=== PATIENT | female | born 1990 | race Caucasian/White ===

== ENCOUNTER 2022-10-07 09:20 | Day surgery (SDC) | payer OTHER ==
[2022-10-07] MEDS ORDERED: SEVOFLURANE 250 ML LIQUID INH ONE (09:30)
[2022-10-07] MEDS ORDERED: fentaNYL 100 MCG/2 ML VIAL ONE (09:31)
[2022-10-07] MEDS ORDERED: MIDAZOLAM 2 MG/2 ML VIAL ONE (09:31)
[2022-10-07] MEDS ORDERED: PROPOFOL 200 MG/20 ML VIAL IVP ONE (09:31)
[2022-10-07] MEDS ORDERED: ACETAMINOPHEN 500 MG TABLET PO ONE (09:41)
[2022-10-07] MEDS ORDERED: CEFAZOLIN 2G/50ML 0.9% NS 2 GM/50 ML BAG IV ONE (09:41)
[2022-10-07 09:43] LABS: HCG UR QUAL NEGATIVE
--- NOTE | 2022-10-07 10:00 | ANESTHESIA ---
Pre-Anesthesia VS, & Labs - Diagnosis L leg mass - Procedure excision L leg mass Vital Signs: Temp Pulse Resp BP Pulse Ox O2 Flow Rate 36.1 C L 59 L 16 117/81 H 100 0 10/07/22 09:43 10/07/22 09:43 10/07/22 09:43 10/07/22 09:43 10/07/22 09:43 10/07/22 09:43 Height: 5 ft 7 in Weight (kg): 73.8 kg Body Mass Index: 25.4 BMI Classification: Overweight - NPO >8 hours - Is Patient ?: No - Lab Results Lab results reviewed: Yes Home Medications and Allergies Home Medications: Ambulatory Orders Multivitamin 1 each PO DAILY 10/03/22 Multivitamin 1 each PO DAILY 10/03/22 Allergies/Adverse Reactions: Allergies Allergy/AdvReac Type Severity Reaction Status Date / Time No Known Drug Allergies Allergy Verified 10/03/22 16:51 Anes History & Medical History - Anesthetic History Anesthesia Complications: reports: No previous complications Family history of Anesthesia Complications: Denies Family history of Malignant Hyperthermia: Denies - Medical History Cardiovascular: reports: None Pulmonary: reports: None Exam General: Alert, Oriented x3, Cooperative Dental: WNL Mouth Openin Fingerbreadth Neck Mobility: Normal Mallampati classification: II Thyromental Distance: 4-6 cm Respiratory: Lungs clear, Normal breath sounds, No respiratory distress Cardiovascular: Regular rate Neurological: Normal speech Mental/Cognitive Status: Alert/Oriented X3, Normal for patient Cognitive Status: Within normal limits Plan Anesthesia Type: General Consent for Procedure(s) Verified and Reviewed: Yes Code Status: Attempt Resuscitation ASA classification: 2-Mild systemic disease Is this case an emergency?: No
[2022-10-07] MEDS ORDERED: LIDOCAINE MPF 2%-EPI 1:200000 20 ML VIAL ONE (10:02)
[2022-10-07] MEDS ORDERED: BUPIVACAINE 0.5% PF 30 ML VIAL ONE (10:02)
[2022-10-07] MEDS ORDERED: ePHEDrine 50 MG/ML VIAL IVP PRN (10:24)
[2022-10-07] MEDS ORDERED: MORPHINE 2 MG/ML CARPUJECT IVP PRN (10:24)
[2022-10-07] MEDS ORDERED: ONDANSETRON 4 MG/2 ML VIAL IVP PRN (10:24)
[2022-10-07] MEDS ORDERED: NALOXONE 0.4 MG/ML VIAL IVP PRN (10:24)
[2022-10-07] MEDS ORDERED: ATROPINE ABBOJECT 1 MG/10 ML SYRINGE IVP PRN (10:24)
[2022-10-07] MEDS ORDERED: HYDROmorphone 0.5 MG/0.5 ML SYRINGE IVP PRN (10:24)
[2022-10-07] MEDS ORDERED: METOCLOPRAMIDE 10 MG/2 ML VIAL IVP PRN (10:24)
[2022-10-07] MEDS ORDERED: fentaNYL 100 MCG/2 ML VIAL IVP PRN (10:24)
[2022-10-07] MEDS ORDERED: BUPIVACAINE 0.25% PF 30 ML VIAL ONE (10:35)
[2022-10-07] MEDS ORDERED: DEXAMETHASONE 4 MG/ML VIAL ONE (10:56)
[2022-10-07] MEDS ORDERED: ONDANSETRON 4 MG/2 ML VIAL ONE (10:56)
[2022-10-07] MEDS ORDERED: PHENYLEPHRINE 10 MG/ML VIAL ONE (10:58)
[2022-10-07] MEDS ORDERED: LACTATED RINGERS 1,000 ML IV SCH (11:00)
[2022-10-07] MEDS ORDERED: BUPIVACAINE 0.5% PF 30 ML VIAL INFIL ONE (11:15)
[2022-10-07] MEDS ORDERED: LIDOCAINE 2%-EPI 1:100000 20 ML MDV SUBQ ONE (11:16)
[2022-10-07] MEDS ORDERED: LACTATED RINGERS 400 ML IV ONE (11:25)
--- NOTE | 2022-10-07 11:38 | OPERATIVE REPORT ---
Operative Report - General Procedure Date: 10/07/22 Planned Procedure: excision left leg mass Pre-Op Diagnosis: left leg mass Procedure Performed: excision left leg mass Post Op Diagnosis: left leg mass, suspect lipoma - Procedure Note Primary Surgeon: Dr. Sarah Phillips Anesthesia Provider: Mike Diaz CRNA Anesthesia Technique: General LMA, Local Estimated Blood Loss (mL): 5 Indications: Patient has a mass on her left lower extremity which has been present for over a year. She frequently bumps the area which causes her pain. It has increased in size since she first noticed it. She has never had any overlying skin changes. The patient was seen and evaluated in the clinic. Imaging suggests a lipoma. Due to the depth of the mass I recommended the procedure to be done in the operating room. We discussed the risks, benefits, and alternatives including bleeding, infection, damage to surrounding structures, numbness in the area, and recurrence of the mass. The patient voiced understanding, her questions were answered, and she wished to proceed. A consent was signed prior to surgery. Findings: 1.4 x 3 x 0.5 cm mass excised and sent to pathology, favor lipoma Complications: None - Other Other Information/Narrative: The patient was taken to the operating room and placed in the supine position. Preop antibiotics were given. ERAS medications were given. The patient was prepped and draped in the usual sterile fashion. A preop surgical timeout was performed. An incision was planned following the natural skin folds overlying the mass. The skin and subcutaneous tissues were injected with local anesthetic. The incision was made with a 15 blade scalpel and carried down through the skin and subcutaneous tissue to the level of the mass. The mass was identified and grasped with an Allis clamp. It was then freed from the surrounding tissues. Once the mass was free, it was removed and sent to pathology for permanent sections. It appeared to be consistent with a lipoma. Excellent hemostasis was confirmed in the mass cavity. Then the deep dermal tissues were reapproximated with 2-0 Vicryl. Finally, the skin edges were reapproximated with 3-0 Monocryl in a running subcuticular fashion. A sterile dressing of skin glue was placed. The patient tolerated the procedure well there were no complications. She was transferred to recovery in stable condition.
[2022-10-07 12:14] VITALS: BP 99/59
--- NOTE | 2022-10-07 17:15 | ANESTHESIA POST OP EVALUATION ---
Anesthesia Post Eval - Post Anesthesia Eval Vitals: Last Vital Signs Temp 36.4 C L 10/07/22 11:47 Pulse 79 10/07/22 12:13 Resp 14 10/07/22 12:13 BP 99/59 L 10/07/22 12:13 Pulse Ox 100 10/07/22 12:13 O2 Flow Rate 0 10/07/22 09:43 CV Function Including HR & BP: Stable Pain Control: Satisfactory Nausea & Vomiting: Negative Mental Status: Baseline Respiratory Status: Airway Patent Hydration Status: Satisfactory Anesthesia Complications: None
== END 2022-10-07 09:21 | disposition home or self-care (01) ==
LOC: SDS 09:20
PROVIDERS: ATTEND Surgery
PROC: 0JBP0ZZ Excision of Left Lower Leg Subcutaneous Tissue and Fascia, Open Approach (ICD-10-PCS; principal; 2022-10-07 10:30)
DX: D17.24 Benign lipomatous neoplasm of skin and subcutaneous tissue of left leg (principal)
CPT/HCPCS: 27632; 81025; A9270; J0690; J3490; J7120

== ENCOUNTER 2023-08-14 07:47 | Outpatient (CLI) | payer OTHER ==
[2023-08-14 07:59] LABS: BASOPHILS % (AUTO) 0.4 %; EOSINOPHILS # (AUTO) 0.3 10^3/uL (0.0-0.7); EOSINOPHILS % (AUTO) 2.7 %; HCT - HEMATOCRIT 38.3 % (37.0-47.0); HGB - HEMOGLOBIN 12.7 g/dL (12.0-16.0); LYMPHOCYTES % (AUTO) 21.1 %; MEAN CORPUSCULAR HEMOGLOBIN 29.7 pg (27.0-31.0); MEAN CORPUSCULAR HGB CONC 33.2 g/dL (32.0-36.0); MEAN CORPUSCULAR VOLUME 89.5 fL (81.0-99.0); MEAN PLATELET VOLUME 9.8 fL (7.9-10.8); MONOCYTES # (AUTO) 0.6 10^3/uL (0.0-1.0); NEUTROPHILS # (AUTO) 6.5 10^3/uL (1.5-6.6); NEUTROPHILS % (AUTO) 69.4 %; PLT - PLATELET COUNT 284 10^3/uL (130-450); RED BLOOD COUNT 4.28 10^6/uL (4.20-5.40); RED CELL DISTRIBUTION WIDTH 12.6 % (12.0-15.0); WHITE BLOOD COUNT 9.4 x10^3/uL (4.8-10.8)
[2023-08-15 03:11] LABS: HBsAG SCREEN Negative (Negative)
[2023-08-15 04:09] LABS: HCV AB Non Reactive (Non Reactive); HIV SCREEN 4TH GENERATION Non Reactive (Non Reactive)
[2023-08-15 08:11] LABS: RPR Non Reactive (Non Reactive); VARICELLA-ZOSTER AB IGG 1217 index (Immune >165)
== END 2023-08-14 07:48 | disposition home or self-care (01) ==
LOC: LAB 07:47
PROVIDERS: ATTEND Nurse Practitioner Obstetrics & Gynecology
DX: Z36.89 Encounter for other specified antenatal screening (principal)
CPT/HCPCS: 36415; 85025; 86592; 86762; 86787; 86803; 86850; 86900; 86901; 87340; 87389

== ENCOUNTER 2023-11-03 16:41 | Outpatient (CLI) | payer OTHER ==
--- NOTE | 2023-11-03 18:13 | Ultrasound Report ---
PROCEDURE: OB Anatomy Scan INDICATIONS: SUPERVISION OF OUTSIDE/PRIOR DATING DATA: Last menstrual period (LMP): 06/14/2023. LMP-based estimated date of delivery (MILLICENT): 03/20/2024. First dating scan (date and location): Unknown. Estimated date of delivery (MILLICENT) from first dating scan: 03/20/2024. The below data below was generated using the clinical MILLICENT of 03/20/2024. TECHNIQUE: Real-time scanning was performed of the fetus, with image documentation and biometric measurements. Endovaginal scanning: Not performed. COMPARISON: None. FINDINGS: General: A single living intrauterine gestation is present. Presentation: Variable Placenta: Placental position is anterior, without previa. Amniotic fluid index: 5.7 cm, within normal limits for gestational age. Largest pocket 2.5 cm. heart rate: No cardiac motion. Maternal cervical canal: 2.8 cm long; normal length is 2.5 cm or more. Closed biometrics: Biparietal diameter: 3.2 cm, 16 weeks 1 day Head circumference: 13.2 cm, 16 weeks 5 days Abdominal circumference: 11.7 cm, 17 weeks 3 days Femur length: 2.5 cm, 17 weeks 4 days Estimated gestational age from initial scan: 20 weeks 2 days Composite gestational age from present scan: 17 weeks 0 days Estimated weight and percentile: 193 g, less than 1st percentile. Measurement variability in biometric dating: +/- 10 days from 12-20 weeks gestation, +/- 2 weeks from 20-30 weeks gestation, +/- 3 weeks at 30 weeks gestation or later. No motion. No gross anatomic abnormality. Maternal ovaries are unremarkable. IMPRESSION: 1. Arreaga intrauterine at 17 weeks 0 days based on today's ultrasound. No cardiac motion . Discordant weight/dating. Cervix is closed. Ultrasound findings diagnostic of failu re. 2. Placenta and amniotic fluid are within normal limits. Preliminary findings conveyed to Ramandeep at 5:15 PM. Reviewed by: Sean Clinton MD on 11/03/2023 6:11 PM PDT Approved by: Sean Clinton MD on 11/03/2023 6:11 PM PDT Station ID: [id number]
== END 2023-11-03 16:42 | disposition home or self-care (01) ==
LOC: DI 16:41
PROVIDERS: ATTEND Nurse Practitioner Obstetrics & Gynecology
DX: Z34.02 Encounter for supervision of normal first pregnancy, second trimester (principal); Z36.89 Encounter for other specified antenatal screening

== ENCOUNTER 2023-11-04 08:32 | Inpatient (IN) | payer OTHER ==
[2023-11-04] MEDS ORDERED: fentaNYL 100 MCG/2 ML VIAL IVP PRN (09:43)
[2023-11-04] MEDS ORDERED: lidocaine 1% 20 ML MDV ID PRN (09:43)
[2023-11-04] MEDS ORDERED: CARBOPROST TROMETHAMINE 250 MCG/ML VIAL IM PRN (09:43)
[2023-11-04] MEDS ORDERED: ONDANSETRON 4 MG/2 ML VIAL IVP PRN (09:43)
[2023-11-04] MEDS ORDERED: TRANEXAMIC ACID IN NACL 1,000 MG/100 ML BAG IV PRN (09:43)
[2023-11-04] MEDS ORDERED: METHYLERGONOVINE 0.2 MG/ML VIAL IM PRN (09:43)
[2023-11-04] MEDS ORDERED: LORazepam 2 MG/ML VIAL IVP PRN (09:47)
[2023-11-04] MEDS ORDERED: MORPHINE 10 MG/ML VIAL IVP PRN (09:49)
--- NOTE | 2023-11-04 09:54 | HISTORY & PHYSICAL EXAMINATION ---
Admit History - Visit Reason Visit Reason: Other - : 4 Parity: 2 Premature: 0 Ectopic: 0 : 2 Care: positive: [facility] Risk/History: positive: None Complications This : positive: Other Smoking Status: Never smoker - Mother's Labs Mother's Blood Type: positive: O Mother's RH: positive: Positive Rubella Status: positive: Immune Meds/Allgy - Home Medications Home Medications: Ambulatory Orders Medication Instructions Recorded Confirmed Multivitamin 1 each PO DAILY 10/03/22 10/07/22 oxyCODONE [Roxicodone] 5 mg PO Q4H PRN #5 tablet 10/07/22 - Allergies Allergies/Adverse Reactions: Allergies Allergy/AdvReac Type Severity Reaction Status Date / Time No Known Drug Allergies Allergy Verified 10/03/22 16:51 Review of Systems - Constitutional Constitutional: denies: Fatigue, Fever, Chills, Malaise - Eyes Eyes: denies: Blurred vision, Spots in vision, Dipolpia - Cardiovascular Cariovascular: denies: Irregular heart rate, Palpitations, Edema - Respiratory Respiratory: denies: Cough - Gastrointestinal Gastrointestinal: denies: Constipation, Diarrhea, Nausea, Vomiting - Genitourinary Genitourinary: denies: Dysuria, Frequency - Integumentary Integumentary: denies: Rash, Pruritis - Neurological Neurological: denies: Headache - Psychiatric Psychiatric: reports: Anxiety. denies: Depression - Hematologic/Lymphatic Hematologic/Lymphatic: denies: Anemia - All Other Systems All Other Systems: reports: Reviewed and negative Plan for Labor - Plan For Labor I expect patient to be DC'd or transferred within 96 hours.: Yes Plan for Labor: HPI: Nancy is a 33yo @ 20.3wks today by LMP c/w 7.6wk U/S who presents to [facility] today with intrauterine demise. She presented yesterday, 11/03/2023 for her routine anatomic survey and there was no cardiac motion detected. We discussed these findings at length yesterday and she elected to go home and attempt to sleep and return this morning for induction of labor. She is with her Luis Enrique this morning. She is understandably tearful. They both ask appropriate questions and are ready to move forward with the process of induction at this time. We reviewed associated risks and side effects and potential for D&C as well as need for blood transfusion which patient consents to. Nancy is a patient of [facility] and has been a patient for the duration of her which has been uncomplicated thus far. Dating criteria: LMP 06/14/2023 --> MILLICENT by LMP 03/20/2024 Initial U/S @ 7.6wks c/w LMP dating OB Hx: G1: 10/11/2015 @ 39.5wks. 2xc64mr male. Unmedicated delivery. Intact. G2: 07/03/2018 SAB G3: 09/23/2019 @ 37.5wks. 8lb1oz female. Unmediated delivery. Intact. Medical Hx: no significant Surgical Hx: wisdom teeth removal -2008; Closed fracture reduction right arm 03/2001; Left calf lipoma removal 07/2022 Social Hx: Monogamous with male partner Pepe. Stopped drinking alcohol due to . Denies current use of tobacco, marijuana or other recreational drugs. Reports that she is safe in current relationship. Family Hx: Denies family history of congenital anomalies, Cystic Fibrosis or chromosomal abnormalities. Colon cancer Allergies: NKDA Meds: PNV course: O positive, antibody negative Hep B neg, Hep C neg HIV nonreactive, RPR nonreactive Rubella immune, varicella immune Genetic screening declined COVID vaccine - declined Influenza vaccine - declined FAS: 11/03/2023 Placenta anterior, without previa. Amniotic fluid index 5.7. heart rate: No cardiac motion. Maternal cervical canal is 2.8cm long. Estimated weight is 193g (less than 1st %tile) and 17.0wks gestation composite gestation age. Disconcordant weight/dating. Ultrasound findings consistent with findings of failure. Assessment: 33yo @ 20.3wks gestation by LMP cw 7.6 U/S Intrauterine demise with growth consistent with 17.0wks Plan: [facility] Initiate 200mcg BC misoprostol q 4 hrs for induction of labor Ibuprofen and tylenol for pain management per pt request. Morphine or fentanyl PRN pain per pt request. Ativan for anxiety PRN. metal drill press operator physician consulted and agrees with above plan of care. Will continue to update regarding patient status.
[2023-11-04] MEDS ORDERED: LACTATED RINGERS 1,000 ML IV SCH (10:00)
--- NOTE | 2023-11-04 11:13 | PHARMACY PROGRESS NOTE ---
- Best Possible Medication History Admit Date and Time: 11/04/23 0943 Processed by: Pharmacy Medications reviewed in ED?: No Medication History completed: Yes Patient Interview: Pt unable to participate Secondary Source(s): Insurance records As the person ultimately responsible for medication therapy, providers are able to order a medication from an existing home medication list in [facility] via the "Reconcile Routine" prior to Confirmation of that medication by product support sales representative. Such practice is discouraged except when the physician, in their clinical judgment, deems that a medical need exists for a medication without regard to previous use.
[2023-11-04 11:14] LABS: BASOPHILS % (AUTO) 0.5 %; EOSINOPHILS # (AUTO) 0.3 10^3/uL (0.0-0.7); EOSINOPHILS % (AUTO) 3.4 %; HCT - HEMATOCRIT 37.8 % (37.0-47.0); HGB - HEMOGLOBIN 12.4 g/dL (12.0-16.0); LYMPHOCYTES # (AUTO) 2.2 10^3/uL (1.5-3.5); LYMPHOCYTES % (AUTO) 27.1 %; MEAN CORPUSCULAR HEMOGLOBIN 29.7 pg (27.0-31.0); MEAN CORPUSCULAR HGB CONC 32.8 g/dL (32.0-36.0); MEAN CORPUSCULAR VOLUME 90.4 fL (81.0-99.0); MEAN PLATELET VOLUME 10.1 fL (7.9-10.8); MONOCYTES # (AUTO) 0.5 10^3/uL (0.0-1.0); NEUTROPHILS % (AUTO) 62.3 %; PLT - PLATELET COUNT 263 10^3/uL (130-450); RED BLOOD COUNT 4.18 10^6/uL (4.20-5.40); RED CELL DISTRIBUTION WIDTH 12.4 % (12.0-15.0); WHITE BLOOD COUNT 8.1 x10^3/uL (4.8-10.8)
[2023-11-04] MEDS: miSOPROStoL 200 MCG TABLET PO SCH (11:35)
--- NOTE | 2023-11-04 12:47 | CONSULTATION NOTE ---
Consultation Report: Called for assist with placement of PIV. Multiple failed attempts. US used to place 20 ga at R FA attempt x1. Lab draws complete at this time, vialsx4, cap and Jloop, secured and dressed. Pt tolerated without complication or complaint.
--- NOTE | 2023-11-04 21:33 | CONSULTATION NOTE ---
Referring Provider Name of Referring Provider:: Ramandeep Blanco CNM Consult Date: 11/04/23 Chief Complaint - Chief Complaint Chief Complaint: demise at 20 weeks History of Present Illness - Admitted From Admitted From:: home - History Obtained From Records Reviewed: yes History obtained from: Ramandeep Blanco - History of Present Illness HPI Comment/Other: patient went for routine anatomy scan and found to have demise. 17 week size. patient and her are of course very upset by this. came in today for labor induction with misoprostol to delivery their baby. I talked with them this morning and with Ramandeep Blanco CNM about her plan. her history in chart was also reviewed. History - Past Medical History Cardiovascular: reports: None Respiratory: reports: None HEENT: reports: Chronic vision loss MRSA Hx?: No Meds/Allgy - Home Medications Home Medications: Ambulatory Orders Medication Instructions Recorded Confirmed Vit No.180/Iron/Folic 1 tab PO DAILY 11/04/23 11/04/23 [ Plus Vitamin-Mineral] - Allergies Allergies/Adverse Reactions: Allergies Allergy/AdvReac Type Severity Reaction Status Date / Time No Known Drug Allergies Allergy Verified 10/03/22 16:51 Exam - Vital Signs Reviewed Vital Signs: Yes Vital Signs: Vital Signs x48h Temp Pulse Resp BP Pulse Ox 11/04/23 19:30 98.1 F 80 18 111/72 98 11/04/23 17:00 98.4 F 80 16 107/69 11/04/23 15:00 98.2 F 72 17 106/72 Conclusion and Plan - Lab Results Laboratory Results 11/04/23 10:55: Blood Type O POSITIVE, Antibody Screen NEGATIVE 11/04/23 10:55: WBC 8.1, RBC 4.18 L, Hgb 12.4, Hct 37.8, MCV 90.4, MCH 29.7, MCHC 32.8, RDW 12.4, Plt Count 263, MPV 10.1, Neut # (Auto) 5.0, Lymph # (Auto) 2.2, [place] # (Auto) 0.5, Eos # (Auto) 0.3, Baso # (Auto) 0.0, Absolute Nucleated RBC 0.00, Nucleated RBC % 0.0 - Diagnostic Imaging Results Diagnostic Imaging Results: positive: Final report reviewed - Diagnosis Diagnosis: demise at 17 weeks - Consultation Note Consultation Note: patient is here for labor induction with misoprostol. will be managed by Ramandeep Blanco CNM but I am aware of plan and agree with management and will be present to assist with care as needed in this difficult case.
[2023-11-05] MEDS: SODIUM CHLORIDE FLUSH 0.9% 10 ML SYRINGE IVP SCH (00:17)
[2023-11-05] MEDS: SODIUM CHLORIDE FLUSH 0.9% 10 ML SYRINGE IVP PRN (04:15)
--- NOTE | 2023-11-05 12:32 | PROVIDER PROGRESS NOTE ---
Subjective - Subjective Subjective: S: Patient is coping well at this time. She is intermittently tearful but is processing her grief well and is able to verbalize her feelings and is asking appropriate questions. Her remains supportive at the bedside. She is understandably feeling anxious regarding a timeline and has requested a change in plan if possible to encourage things to move forward. We have reviewed each time the normalcy of this process taking an indeterminate amount of time for each patient and she reports understanding. She reports feeling mild, occasional cramping but nothing consistent or overly uncomfortable. She had a small amount of brown discharge when she went to the bathroom approximately 4 hours ago but has not had any since that time. O: Heart RRR w/o M/G/R, lungs CTAB, abdomen soft and nontender. SVE fingertip/2cm in length/-2 medium consistency, posterior. A:Assessment: 33yo @ 20.4wks gestation by LMP cw 7.6 U/S Intrauterine demise with growth consistent with 17.0wks S/p 5 doses of 50mcg BC misoprostol Plan: Initiate 400mcg BC misoprostol q 4 hrs for induction of labor Ibuprofen and tylenol for pain management per pt request. Morphine or fentanyl PRN pain per pt request. Ativan for anxiety PRN. order caller physician consulted and agrees with above plan of care. Will continue to update regarding patient status. Objective - Vital Signs/Intake & Output Intake & Output: Intake & Output 11/02/23 11/03/23 11/04/23 11/05/23 23:59 23:59 23:59 23:59 Intake Total 400 Balance 400 - Lab Results Fish Bones: 11/04/23 10:55 Other Labs: Lab Results x24hrs 11/04/23 Range/Units 10:55 Blood Type O POSITIVE Antibody Screen NEGATIVE
[2023-11-05] MEDS: miSOPROStoL 200 MCG TABLET PO SCH (12:48)
[2023-11-05] MEDS: ACETAMINOPHEN 500 MG TABLET PO PRN (18:37)
[2023-11-05] MEDS: IBUPROFEN 800 MG TABLET PO PRN (18:38)
--- NOTE | 2023-11-05 19:24 | PROVIDER PROGRESS NOTE ---
Subjective - Subjective Subjective: S: Pt experiencing more discomfort with contractions. She is feeling very emotional at present time understandably. She requests IV pain medication. Her is supportive at the bedside. O: SROM 1855 moderate of clear fluid in the bathroom and then is back to the bed. A: 33yo @ 20.2wks gestation by LMP c/w 6wk U/S Intrauterine demise with growth consistent with 17wk gestation P: Continue 400mcg BC misoprostol q 4hrs. Fentanyl PRN pain Tylenol and ibuprofen PRN pain. Ativan PRN anxiety. production control analyst physician notified of pt progress. Objective - Vital Signs/Intake & Output Vital Signs: Vital Signs x48h Temp Pulse Resp BP Pulse Ox 11/05/23 17:24 37.0 C 64 18 124/76 99 11/05/23 15:00 116 C H 70 18 116/78 11/05/23 13:00 36.8 C 70 16 108/72 Intake & Output: Intake & Output 11/02/23 11/03/23 11/04/23 11/05/23 23:59 23:59 23:59 23:59 Intake Total 400 Balance 400 - Lab Results Fish Bones: 11/04/23 10:55
[2023-11-05] MEDS ORDERED: fentaNYL 100 MCG/2 ML VIAL ONE (19:26)
[2023-11-05] MEDS: fentaNYL 100 MCG/2 ML VIAL IVP PRN (19:30)
[2023-11-05] MEDS ORDERED: OXYTOCIN 10 UNIT/ML VIAL ONE (19:55)
[2023-11-05] MEDS ORDERED: WITCH HAZEL/GLYCERIN 1 PAD TOP PRN (20:00)
[2023-11-05] MEDS: OXYTOCIN 10 UNIT/ML VIAL IM ONE (20:00)
--- NOTE | 2023-11-05 21:29 | PROVIDER PROGRESS NOTE ---
Subjective - Subjective Subjective: 33yo @ 20.1wks gestation with intrauterine demise with growth consistent with 17.0wk gestation. She was diagnosed with IUFD on 11/03/2023 and presented to [facility] for induction of labor on 11/04/2023. She received 5 total doses of 200mcg BC misoprostol q 4 hours followed by 2 doses of 400mcg BC misoprostol. SROM occurred at 1855 and was noted to be a moderate amount of clear fluid. She then proceeded to spontaneously deliver a stillborn male at 1947 on 11/05/2023 over intact perineum with simultaneous delivery of placenta and amniotic sac. Upon delivery the amniotic sac was carefully removed and there was noted to be a tight double nuchal cord. The cord insertion site at abdomen also appeared abnormal with tight coiling and thinning at the lower (approximate) 5cm. 10mg IM pitocin administered for active management of the third stage. Uterine fundus firm and there is no excessive bleeding. Perineum intact. The umbilical cord was ceremoniously cut by FOB per family request. The placenta and attached cord segment were sent to pathology per protocol. Pt and given time to hold and ca with fetus per their request. Appropriate emotional grief displayed and both parents coping appropriately at this time. Patient was left in stable condition. Will evaluate for discharge home in the morning. Objective - Vital Signs/Intake & Output Vital Signs: Vital Signs x48h Temp Pulse Resp BP Pulse Ox 11/05/23 17:24 37.0 C 64 18 124/76 99 11/05/23 15:00 116 C H 70 18 116/78 Intake & Output: Intake & Output 11/02/23 11/03/23 11/04/23 11/05/23 23:59 23:59 23:59 23:59 Intake Total 400 Balance 400 - Lab Results Fish Bones: 11/04/23 10:55
[2023-11-06 06:33] VITALS: O2SAT 98
--- NOTE | 2023-11-06 11:12 | Discharge Plan ---
Discharge Plan Problem Reviewed?: Yes Disposition: Home, Self Care Condition: Good Diet: Regular Activity Restrictions: Activity as Tolerated Shower Restrictions: No Driving Restrictions: No Weight Bearing: Full Weight No Smoking: If you smoke, Please STOP! Call for help. Follow-up with: Ramandeep Blanco CNM, ARNP [Provider Admit Priv/Credential] - 1 Week
--- NOTE | 2023-11-06 11:37 | DISCHARGE SUMMARY ---
Discharge Summary Condition at Discharge: Good Discharge Disposition: 01 Home, Self Care - HPI History of Present Illness: Date of Admission: 11/04/2023 Date of Discharge: 11/06/2023 Diagnosis on Admission: 1. 33yo @ 20.2wks gestation by LMP c/w 7.6 U/S 2. Intrauterine demise with growth consistent with 17.0wks 3. O positive Diagnosis on Discharge: 1. 33yo s/p stillborn vaginal delivery 2. Perineum intact 3. Normal recovery Brief History: She is a patient of [facility] who presented on 11/04/2023 for induction of labor secondary to diagnosis of intrauterine demise. She received 5 doses of 200mcg BC misoprostol and 400mcg BC misoprostol. SROM occurred at 1855 and she progressed to spontaneously deliver a stillborn male infant over intact perineum on 11/05/2023 at 1947. Amniotic sac and placenta were delivery simultaneously with fetus. Perineum was noted to be intact. She received IM pitocin after delivery for active management of the third stage. EBL 50mL. Tight double nuchal cord and abnormal cord insertion site noted. Findings relayed to parents at the time of delivery. She is ambulating and tolerating a regular diet. She is urinating without difficulty and her lochia is scant. Her pain is well controlled without the use of oral medications. She will be discharged home today with instructions to taking ibuprofen and tylenol over the counter as needed for pain management. She intends to follow up with myself in 5 days for care or sooner if needed. She has been given precautions to call if she has any worsening fevers, chills, abdominal pain, increased vaginal bleeding or foul smelling vaginal loc hia. Physical exam: Normocephalic, atraumatic. Heart RRR w/o M/G/R, lungs CTAB, abdomen soft and notender, fundus firm and U-3, perineum intact, scant lochia, bilateral LE's no edema. Mood is stable and appropriate. - ALLERGIES Allergies/Adverse Reactions: Allergies Allergy/AdvReac Type Severity Reaction Status Date / Time No Known Drug Allergies Allergy Verified 10/03/22 16:51 - MEDICATIONS Home Medications: Ambulatory Orders Medication Instructions Recorded Confirmed Vit No.180/Iron/Folic 1 tab PO DAILY 11/04/23 11/04/23 [ Plus Vitamin-Mineral] - LABS Result Diagrams: 11/04/23 10:55
[2023-11-06 12:14] VITALS: BP 108/73
--- NOTE | 2023-11-07 07:47 | Labor Flowsheet ---
Labor Flowsheet Datetime Report Generated by CPN: 11/07/2023 07:47 Datetime: 11/04/2023 15:36 PATIENT CARE I/O Interventions: Up to BR Datetime: 11/04/2023 13:26 Patient Care Comments: Up to BR Datetime: 11/04/2023 11:35 MEDICATIONS Cervical Ripening Agents: Cytotec @ 200 Medication Comments: PO COMMUNICATION Communication: RN at Bedside
== END 2023-11-06 11:30 | disposition home or self-care (01) | DRG 807 ==
LOC: WFO 08:32 → FBP 09:43
PROVIDERS: ADMIT Nurse Practitioner Obstetrics & Gynecology; ATTEND Nurse Practitioner Obstetrics & Gynecology
PROC: 3E0DXGC Introduction of Other Therapeutic Substance into Mouth and Pharynx, External Approach (ICD-10-PCS; 2023-11-04)
PROC: 10E0XZZ Delivery of Products of Conception, External Approach (ICD-10-PCS; principal; 2023-11-05)
DX: O36.4XX0 Maternal care for intrauterine death, not applicable or unspecified (principal); Z37.1 Single stillbirth; Z3A.20 20 weeks gestation of pregnancy; O69.81X0 Labor and delivery complicated by cord around neck, without compression, not applicable or unspecified
CPT/HCPCS: 36415; 59409; 85025; 86850; 86900; 86901; A9270